=== PATIENT | female | born 1990 | race Caucasian/White ===

== ENCOUNTER 2022-01-20 07:57 | Inpatient (IN) ==
[2022-01-20] MEDS ORDERED: Naloxone 0.4 MG/ML INJ IVP PRN (08:17)
[2022-01-20] MEDS ORDERED: Famotidine 20 MG/2 ML VIAL IVP PRN (08:17)
[2022-01-20] MEDS ORDERED: Metoclopramide 10 MG/2 ML VIAL IVP PRN (08:17)
[2022-01-20] MEDS ORDERED: D5% in 0.45% NACL 1,000 ML IVC SCH (08:30)
[2022-01-20 09:14] LABS: Basophils % 0.5 %; Eosinophils # 0.1 K/mcL (0.0-0.6); Eosinophils % 1.7 %; Hematocrit 36.1 % (35.3-44.9); Hemoglobin 12.3 g/dL (11.5-15.4); Immature Granulocytes % 0.5 % (0-4); Lymphocytes # 1.7 K/mcL (0.6-4.6); Lymphocytes % 20.3 %; Mean Corpuscular HGB Conc 34.1 g/dL (31.6-35.5); Mean Corpuscular Hemoglobin 30.8 pg (28.0-33.3); Mean Corpuscular Volume 90.3 fL (83.0-100.0); Mean Platelet Volume 9.9 fL (9.4-12.4); Monocytes # 0.6 K/mcL (0.0-1.3); Monocytes % 6.7 %; Platelet Count 209 K/mcL (140-400); Red Cell Distribution Width 14.6 % (11.5-14.5); Segmented Neutrophils % 70.3 %; White Blood Count 8.5 K/mcL (4.3-11.1)
[2022-01-20 09:21] LABS: Amphetamine Screen,Urine Negative ng/mL (Cutoff=1000); Barbiturate Screen,Urine Negative ng/mL (Cutoff=200); Benzodiazepines Screen,Urine Negative ng/mL (Cutoff=200); Cannabinoid Screen,Urine Positive ng/mL (Cutoff = 50); Cocaine Screen,Urine Negative ng/mL (Cutoff= 300); Opiate Screen,Urine Negative ng/mL (Cutoff=300); Phencyclidine Screen,Urine Negative ng/mL (Cutoff=25)
[2022-01-20] MEDS: Ringers Solution, Lactated 1,000 ML IVC SCH ×3 (09:27→19:13)
[2022-01-20] MEDS ORDERED: Oxytocin 30 UNIT/503 ML BAG IVC ONE (09:28)
[2022-01-20] MEDS ORDERED: Oxytocin 30 UNIT/503 ML BAG IVC SCH (09:30)
[2022-01-20 09:46] LABS: Influenza A PCR Negative (Negative); Influenza B PCR Negative (Negative); Resp. Syncytial Virus PCR Negative (Negative); SARS-CoV-2 by PCR (In House) Negative (Negative)
[2022-01-20] MEDS ORDERED: EPHEDrine 50 MG/ML VIAL IVP PRN (11:21)
[2022-01-20] MEDS ORDERED: *HR* FentaNYL (PF) 100 MCG/2 ML VIAL EP ONE (11:21)
[2022-01-20] MEDS ORDERED: Epidural Premix (fent/bupiv) 110 ML EP SCH ×3 (11:30→13:45)
[2022-01-20] MEDS ORDERED: Ropivacaine/PF 0.2% 20 ML VIAL ONE (12:42)
[2022-01-20] MEDS ORDERED: *HR* FentaNYL (PF) 100 MCG/2 ML VIAL ONE (12:42)
[2022-01-21] MEDS ORDERED: 0.9 % Sodium Chloride 1,000 ML ONE (02:08)
[2022-01-21] MEDS ORDERED: Acetaminophen 325 MG TABLET PO SCH ×2 (09:00→12:00)
[2022-01-21] MEDS ORDERED: Oxytocin 30 UNIT/503 ML BAG IVC SCH (09:00)
[2022-01-21] MEDS ORDERED: Benzocaine/Menthol 56 GM AEROSOL SPRAY TP PRN (09:00)
[2022-01-21] MEDS ORDERED: Ondansetron ODT 4 MG TAB.RAPDIS SL PRN (09:00)
[2022-01-21] MEDS ORDERED: Lanolin 7 G OINT...G. TP PRN (09:00)
[2022-01-21] MEDS: Ibuprofen 600 MG TABLET PO SCH ×3 (09:33→21:18)
[2022-01-21] MEDS: Prenatal Vit/FA 1 EACH TABLET PO SCH (09:34)
[2022-01-21] MEDS ORDERED: Ibuprofen 600 MG TABLET PO SCH (12:00)
[2022-01-21] MEDS: Acetaminophen 325 MG TABLET PO SCH ×2 (15:14→21:19)
[2022-01-22] MEDS: Ibuprofen 600 MG TABLET PO SCH ×2 (03:24→09:39)
[2022-01-22] MEDS: Acetaminophen 325 MG TABLET PO SCH (03:24)
[2022-01-22 07:19] VITALS: BP 109/74; PULSE 86; TEMP 98.3; O2SAT 98
[2022-01-22] MEDS: Prenatal Vit/FA 1 EACH TABLET PO SCH (09:39)
== END 2022-01-22 11:45 | disposition home or self-care (01) | DRG 807 ==
LOC: 1NENULAB 07:57 → 1NENUOBS 01-21 09:00
PROVIDERS: ADMIT Obstetrics & Gynecology; ATTEND Obstetrics & Gynecology